=== PATIENT | female | born 1980 ===

== ENCOUNTER → 2020-10-11 | Day surgery (SDC) | payer OTHER | END | disposition home or self-care (01) | LOC: ADM 10-04 13:45 → AMB-ENDOS 11:25 | PROVIDERS: ATTEND Colon & Rectal Surgery | DX: K62.89 Other specified diseases of anus and rectum (principal); Z12.11 Encounter for screening for malignant neoplasm of colon; Z20.822 Contact with and (suspected) exposure to COVID-19; K64.8 Other hemorrhoids ==